=== PATIENT | female | born 1995 | race Caucasian/White ===

== ENCOUNTER 2017-01-30 18:15 | Emergency (ER) | payer MEDICAID ==
[~2017-01-30] VITALS: Ht 172.7 cm; Wt 68.0 kg
[~2017-01-30 18:15] MED LIST: [UNRECOGNIZED DRUG - REMARK]
[2017-01-30 18:33] VITALS: BP 116/83
[2017-01-30] MEDS ORDERED: HYDROcodone-ACET 5/325MG TAB PO ONE (20:45)
== END 2017-01-30 21:41 | disposition home or self-care (01) ==
LOC: ER 18:17
DX: S90.32XA Contusion of left foot, initial encounter (principal); W10.8XXA Fall (on) (from) other stairs and steps, initial encounter; Y93.89 Activity, other specified; Y99.8 Other external cause status; Y92.89 Other specified places as the place of occurrence of the external cause
CPT/HCPCS: 73610; 73630